=== PATIENT | female | born 1965 | race African-American/Black ===

== ENCOUNTER 2025-07-15 15:27 | Emergency (ER) | payer BC ==
[2025-07-15] MEDS ORDERED: Ondansetron PF 4 MG/2 ML Vial ONE ×2 (15:51→17:03)
[2025-07-15 15:53] LABS: Hematocrit 35.6 % (36.0-47.0); Hemoglobin 11.1 g/dL (12.0-16.0); Mean Corpuscular Hemoglobin 26.4 pg (27.0-31.0); Mean Corpuscular Volume 84.9 fl (78.0-98.0); Platelet Count 209 10x3/uL (130-400); Red Blood Cell (RBC) Count 4.19 mill/uL (4.20-5.40); White Blood Cell (WBC) Count 8.7 10x3/uL (4.8-10.8)
[2025-07-15 16:12] LABS: MDiff Complete? YES; Platelet Adequacy Comment Appears Adequate
[2025-07-15 16:13] LABS: ALT (SGPT) 20 U/L (Less than 34); AST (SGOT) 52 U/L (11-34); Albumin 3.9 g/dL (3.1-4.5); Alkaline Phosphatase 64 U/L (40-110); Anion Gap 20 mmol/L (10-20); BUN (Urea Nitrogen) 24 mg/dL (9.8-20.1); Bilirubin, Total 0.9 mg/dL (0.3-1.2); CK (CPK) 173 U/L (29-168); Calc. Creatinine Clearance 0 mL/min (70-130); Calcium 9.4 mg/dL (7.8-10.44); Carbon Dioxide 18 mmol/L (22-29); Chloride 106 mmol/L (98-107); Globulin 3.8 g/dL (2.4-3.5); Glucose 127 mg/dL (70-105); Potassium 4.2 mmol/L (3.5-5.1); Sodium 140 mmol/L (136-145)
== END 2025-07-15 18:14 | disposition home or self-care (01) ==
LOC: MADERS 15:27
DX: T67.5XXA Heat exhaustion, unspecified, initial encounter (principal); R00.1 Bradycardia, unspecified; R29.700 NIHSS score 0; I10 Essential (primary) hypertension; E78.5 Hyperlipidemia, unspecified; R73.03 Prediabetes; Z79.899 Other long term (current) drug therapy; X30.XXXA Exposure to excessive natural heat, initial encounter
CPT/HCPCS: 36416; 80053; 82550; 85025; 93005; 94760; 96361; 96374; 96376; J2405; J7120